=== PATIENT | male | born 1975 | race African-American/Black ===

== ENCOUNTER 2019-02-14 08:13 | Inpatient (IN) | payer OTHER ==
[2019-02-14] MEDS ORDERED: SODIUM CHLORIDE 1,000 ML IV STA ×3 (08:48→12:54)
[2019-02-14] MEDS ORDERED: ONDANSETRON 4 MG/2 ML VIAL IVPUSH ONE (08:48)
[2019-02-14] MEDS ORDERED: PANTOPRAZOLE SODIUM 40 MG in SODIUM CHLORIDE 100 ML IVPB ONE (08:48)
[2019-02-14] MEDS ORDERED: ONDANSETRON 4 MG/2 ML VIAL ONE (09:37)
[2019-02-14] MEDS ORDERED: PANTOPRAZOLE SODIUM 40 MG/100 ML BAG IVPB ONE (09:37)
--- NOTE | 2019-02-14 10:03 | PDOC ---
History of Present Illness - General Chief Complaint: Nausea/Vomiting Stated Complaint: SWEATING/ THROWING UP Time Seen by Provider: 02/14/19 09:23 History Source: Patient Exam Limitations: No Limitations - History of Present Illness Initial Comments: 02/14/19 09:58 43-year-old male with history of alcohol abuse presents to ED after drinking heavily over the weekend. Patient states has been in recovery since November and drink approximately a bottle of 100 proof Smirnoff vodka Thursday causing him to now vomiting feel weak along with dizziness. Patient called his mother this morning and brought him here for evaluation. Patient denies chest pain, shortness of breath, head injury, headache, bloody emesis, bloody stool, or change in urine pattern. Patient states has been unable to tolerate anything by mouth secondary to continual nausea vomiting Timing/Duration: getting worse Severity: moderate Associated Symptoms: reports: diaphoresis, loss of appetite, nausea/vomiting, weakness Past History - Travel Traveled outside of the country in the last 30 days: No Close contact w/someone who was outside of country & ill: No - Past Medical History Allergies/Adverse Reactions: Allergies Allergy/AdvReac Type Severity Reaction Status Date / Time No Known Allergies Allergy Verified 02/14/19 08:18 Home Medications: Ambulatory Orders Clonidine HCl [Catapres] 0.5 mg PO DAILY 02/14/19 Colchicine 0.6 mg PO BID PRN 10 Days #20 capsule 02/19/19 Omeprazole 40 mg PO DAILY #30 tablet. 02/19/19 COPD: No HTN: Yes - Suicide/Smoking/Psychosocial Hx Smoking History: Never smoked Information on smoking cessation initiated: No Hx Alcohol Use: Yes Drug/Substance Use Hx: No Substance Use Type: Alcohol Hx Substance Use Treatment: No Patient Lives Alone: Yes Lives with/in: lives alone Review of Systems - Review of Systems Able to Perform ROS?: No Constitutional: Yes: Loss of Appetite, Weakness HEENTM: No: Symptoms Reported Respiratory: No: Symptoms reported Cardiac (ROS): No: Symptoms Reported ABD/GI: Yes: Nausea, Poor Appetite, Poor Fluid Intake, Vomiting : No: Symptoms Reported Musculoskeletal: No: Symptoms Reported Integumentary: Yes: Sweating Neurological: Yes: Weakness Endocrine: No: Symptoms Reported Hematologic/Lymphatic: No: Symptoms Reported *Physical Exam - Vital Signs Last Vital Signs Temp Pulse Resp BP Pulse Ox 98.3 F 81 18 100/80 98 02/14/19 08:16 02/14/19 08:16 02/14/19 08:16 02/14/19 08:16 02/14/19 08:16 - Physical Exam General Appearance: Yes: Nourished, Appropriately Dressed, Alcohol on Breath. No: Apparent Distress, Intoxicated HEENT: positive: EOMI, KWASI, TMs Normal, Pharynx Normal (dry). negative: Pale Conjunctivae Neck: positive: Supple Respiratory/Chest: positive: Lungs Clear, Normal Breath Sounds. negative: Respiratory Distress, Accessory Muscle Use Cardiovascular: positive: Regular Rhythm, Regular Rate. negative: Murmur Gastrointestinal/Abdominal: positive: Soft. negative: Tenderness Integumentary: positive: Diaphoresis Neurologic: positive: Normal Mood/Affect, Motor Strength 5/5, Other (tremulous) Heart Score/ECG Review - History History: Slightly suspicious - Age Age: </= 45 - Risk Factors Risk Factors Heart Score: Yes Hx Hypertension - Troponin Troponin: </= normal limit - ECG Intrepretation Rhythm: Regular Rhythm (ssinus tachy at 127, qtc 412) ED Treatment Course - LABORATORY CBC & Chemistry Diagram: 02/19/19 06:00 02/19/19 06:00 Medical Decision Making - Medical Decision Making 02/14/19 10:00 Chief complaint: Nausea vomiting diaphoresis poor appetite and weakness since yesterday. Patient drank approximately 750 ml of 100 proof Smirnoff vodka Thursday into Thursday. By Thursday evening patient began to vomit with worsening symptoms. Patient states that has been in recovery from alcohol since November currently involved in a meetings but due to "bad news" at work patient began to drink. Exam: Patient found to be diaphoretic dry oropharynx and mild fine tremors to bilateral hands while at rest Plan: Fluids, urine, antiemetics, labs, and 0.5 mg of Ativan 02/14/19 12:54 Laboratory Tests 02/14/19 02/14/19 11:30 11:30 LD Total 194 Creatine Kinase 1048 H Creatine Kinase Index 1.0 CK-MB (CK-2) 11.3 H Troponin I < 0.02 Total Amylase 79 Acetone, Qual Positive moderate 2+ Laboratory Tests 02/14/19 02/14/19 09:55 09:55 Hgb 16.5 Hct 49.5 H D Absolute Neuts (auto) 10.2 H Neutrophils % 88.9 H D Lymphocytes % 3.9 L D Sodium 129 L Potassium 5.2 H Chloride 92 L Carbon Dioxide 11 L Anion Gap 26 H BUN 46 H Creatinine 2.6 H Random Glucose 254 H Magnesium 1.6 L Total Bilirubin 3.0 H AST 55 H Total Protein 9.8 H Albumin 4.6 Lipase 671 H Pt ordered for 3 liters of IVF, mag replacement, amylase, gb u/s ( poss abd ct) , ekg, color television console monitor, an additional 1 mg of ativan ( secondary to continual tremors and elevated HR). Pt concerning for rhabdo, ARF, and DKA. Fingerstick to be done after 3 rd liter of ivf 02/14/19 12:57 Laboratory Tests 02/14/19 13:20 VBG pH 7.42 H POC VBG pCO2 20.6 L POC VBG pO2 109 H VBG HCO3 13.0 L VBG O2 Sat (Daniel) 98.0 H VBG Base Excess -9.4 L GB u/s shows no acute findings pt will receive banana bag then repeat chemistry. If electrolytes corrected will continue admission to telemetry. If continual deficit, will consult ICU. Case discussed w/ Ashtyn and will consult shortly. Consult to Fay payan 02/14/19 16:22 Laboratory Tests 02/14/19 02/14/19 02/14/19 09:55 09:55 11:30 WBC 11.5 H Hgb 16.5 Hct 49.5 H D Absolute Neuts (auto) 10.2 H Neutrophils % 88.9 H D Lymphocytes % 3.9 L D VBG pH POC VBG pCO2 POC VBG pO2 Sodium 129 L Potassium 5.2 H Chloride 92 L Carbon Dioxide Anion Gap BUN Creatinine Random Glucose Calcium Total Bilirubin AST Alkaline Phosphatase LD Total 194 Creatine Kinase Creatine Kinase Index CK-MB (CK-2) Troponin I Total Amylase 79 Urine Protein Urine Ketones Urine Blood Urine Urobilinogen Ur Leukocyte Esterase Urine WBC (Auto) Alcohol, Quantitative 02/14/19 02/14/19 02/14/19 13:20 14:45 15:00 WBC Hgb Hct Absolute Neuts (auto) Neutrophils % Lymphocytes % VBG pH 7.42 H POC VBG pCO2 20.6 L POC VBG pO2 109 H Sodium 134 L Potassium Chloride Carbon Dioxide 17 L Anion Gap 14 BUN 38 H Creatinine 1.5 H Random Glucose 128 H Calcium 7.8 L Total Bilirubin 2.2 H AST 42 H Alkaline Phosphatase 43 L LD Total Creatine Kinase 913 H Creatine Kinase Index 1.1 CK-MB (CK-2) 10.3 H Troponin I < 0.02 Total Amylase Urine Protein 1+ H Urine Ketones 4+ H Urine Blood 1+ H Urine Urobilinogen 0.2 Ur Leukocyte Esterase Negative Urine WBC (Auto) 6 Alcohol, Quantitative < 3.0 Electrolytes improving. Selected Entries 02/14/19 15:53 Pulse Rate [ 102 H Radial] Blood Pressure 135/89 [Right Arm] *DC/Admit/Observation/Transfer Diagnosis at time of Disposition: Rhabdomyolysis, ARF (acute renal failure), Alcoholic ketoacidosis, Elevated lipase - Discharge Dispostion Disposition: AGAINST MEDICAL ADVICE Condition at time of disposition: Poor Decision to Admit order: Yes - Referrals - Patient Instructions - Post Discharge Activity
[2019-02-14] MEDS ORDERED: LORazepam 2 MG/ML SDV VIAL ONE ×3 (10:08→18:30)
[2019-02-14 10:11] LABS: BASO % 0.2 % (0-2.0); HEMATOCRIT 49.5 % (35.4-49); HEMOGLOBIN 16.5 GM/dL (11.7-16.9); LYMPH % 3.9 % (8-40); MCH 29.3 pg (25.7-33.7); MCHC 33.3 g/dl (32.0-35.9); MEAN CELL VOLUME 87.9 fl (80-96); MEAN PLT VOLUME 8.8 fl (7.5-11.1); NEUT % 88.9 % (42.8-82.8); PLATELET COUNT 205 K/MM3 (134-434); RBC 5.63 M/mm3 (4.00-5.60); RDW 14.3 % (11.9-15.9); WHITE BLOOD COUNT 11.5 K/mm3 (4.0-10.0)
[2019-02-14 10:48] LABS: ALBUMIN 4.6 g/dl (3.4-5.0); ALK PHOS 55 U/L (45-117); ANION GAP 26 MMOL/L (8-16); BLOOD UREA NITROGEN 46 mg/dL (7-18); CHLORIDE 92 mmol/L (98-107); CO2 11 mmol/L (21-32); CREATININE 2.6 mg/dL (0.55-1.3); GLUCOSE,RANDOM 254 mg/dL (74-106); LIPASE 671 U/L (73-393); MAGNESIUM 1.6 mg/dL (1.8-2.4); POTASSIUM 5.2 mmol/L (3.5-5.1); SGOT/AST 55 U/L (15-37); SGPT/ALT 50 U/L (13-61); SODIUM 129 mmol/L (136-145); TOT PROT 9.8 g/dl (6.4-8.2)
[2019-02-14] MEDS ORDERED: MAGNESIUM SULF 50% (8.12 MEQ/2 ML-1 GM VIAL) IVPB ONE (11:05)
[2019-02-14] MEDS ORDERED: MAGNESIUM 2GM/50ML STERILE WATER IVPB IVPB ONE (12:15)
--- NOTE | 2019-02-14 12:18 | EKG ---
Test Reason : Blood Pressure : / mmHG Vent. Rate : 127 BPM Atrial Rate : 127 BPM P-R Int : 118 ms QRS Dur : 092 ms QT Int : 284 ms P-R-T Axes : 054 058 051 degrees QTc Int : 412 ms SINUS TACHYCARDIA T WAVE ABNORMALITY, CONSIDER INFERIOR ISCHEMIA ABNORMAL ECG WHEN COMPARED WITH ECG OF 06-OCT-2017 12:42, T WAVE VARIATION Confirmed by EILEEN ALONSO MD ([id number]) on 02/14/2019 12:18:15 PM Referred By: Confirmed By:EILEEN ALONSO MD
[2019-02-14 12:24] LABS: AMYLASE 79 U/L (25-115); LDH 194 U/L (87-246)
[2019-02-14 13:34] LABS: VENOUS PC02 20.6 mmHg (41-51); VENOUS PH 7.42 (7.31-7.41)
[2019-02-14] MEDS ORDERED: FOLIC ACID INJECTION - 1 MG, THIAMINE HCL 100 MG, MULTIVIT INJECTION ADULT 10 ML in SOD... IVPB ONE (14:32)
[2019-02-14] MEDS ORDERED: METOPROLOL TARTRATE 5 MG/5 ML VIAL IVPUSH ONE (15:02)
[2019-02-14] MEDS ORDERED: METOPROLOL TARTRATE 5 MG/5 ML VIAL ONE (15:15)
[2019-02-14 15:32] LABS: ALBUMIN 3.7 g/dl (3.4-5.0); ALK PHOS 43 U/L (45-117); ANION GAP 14 MMOL/L (8-16); BILIRUBIN,TOTAL 2.2 mg/dL (0.2-1); BLOOD UREA NITROGEN 38 mg/dL (7-18); CALCIUM 7.8 mg/dL (8.5-10.1); CHLORIDE 103 mmol/L (98-107); CO2 17 mmol/L (21-32); CREATININE 1.5 mg/dL (0.55-1.3); GLUCOSE,RANDOM 128 mg/dL (74-106); MAGNESIUM 2.2 mg/dL (1.8-2.4); POTASSIUM 4.3 mmol/L (3.5-5.1); SGOT/AST 42 U/L (15-37); SGPT/ALT 39 U/L (13-61); SODIUM 134 mmol/L (136-145); TOT PROT 7.9 g/dl (6.4-8.2)
[2019-02-14 15:33] LABS: COCAINE, UR NEGATIVE ng/ml (CUTOFF=300); EPI CELLS 2.1 /HPF (0-5/HPF); METHADONE, UR NEGATIVE ng/ml (CUTOFF=300); OPIATES, URI NEGATIVE ng/ml (CUTOFF=300); PH,URINE 5.5 (5.0-8.0); PHENCYCLIDINE,URINE NEGATIVE ng/ml (CUTOFF=25); URINE AMPHETAMINES NEGATIVE ng/ml (CUTOFF=500); URINE APPEARANCE CLEAR; URINE BACTERIA 5.6 /hpf (NEGATIVE); URINE BARBITURATES NEGATIVE ng/ml (CUTOFF=200); URINE BENZODIAZEPINES NEGATIVE ng/ml (CUTOFF=200); URINE BILIRUBIN NEGATIVE (NEGATIVE); URINE CASTS 19 /lpf (0-8); URINE COLOR YELLOW; URINE GLUCOSE (UA) NEGATIVE (NEGATIVE); URINE KETONE 4+ (NEGATIVE); URINE LEUK ESTERASE NEGATIVE (NEGATIVE); URINE NITRITE NEGATIVE (NEGATIVE); URINE PROTEIN 1+ (NEGATIVE); URINE RBC 2 /hpf (0-4); URINE UROBILINOGEN 0.2 mg/dL (0.2-1.0); URINE WBC 6 /hpf (0-5)
--- NOTE | 2019-02-14 17:11 | CONSULT ---
Consult Consult Specialty:: Nephrology Reason for Consultation:: YIN - History of Present Illness Chief Complaint: weekness and malaise History of Present Illness: Pt is a 43 year old male with pmhx of etoh abuse who presents to the ER with malaise. He quit drinking eoth in November however had a relapse over the weekend and has been drinking heavily. He did have a few episodes of vomiting. He was found to be in renal failure and I was called to evaluate him. He denies history of CKD. He denies hematuria or dysuria. He uses nsaids occasionaly. He is awake and alert. He did respond to fluids. - History Source History Provided By: Patient, Medical Record - Past Medical History Cardio/Vascular: Yes: HTN - Alcohol/Substance Use Hx Alcohol Use: Yes History of Substance Use: reports: None - Smoking History Smoking history: Never smoked - Social History ADL: Independent History of Recent Travel: No Home Medications - Allergies Allergies/Adverse Reactions: Allergies Allergy/AdvReac Type Severity Reaction Status Date / Time No Known Allergies Allergy Verified 02/14/19 08:18 - Home Medications Home Medications: Ambulatory Orders Clonidine HCl [Catapres] 0.5 mg PO DAILY 02/14/19 Family Disease History - Family Disease History Family History: Denies Review of Systems - Review of Systems Constitutional: reports: Malaise. denies: Chills, Fever Eyes: reports: No Symptoms HENT: reports: No Symptoms Neck: reports: No Symptoms Cardiovascular: reports: No Symptoms Respiratory: reports: No Symptoms Gastrointestinal: reports: No Symptoms Genitourinary: reports: No Symptoms Musculoskeletal: reports: No Symptoms Integumentary: reports: No Symptoms Neurological: reports: No Symptoms Endocrine: reports: No Symptoms Hematology/Lymphatic: reports: No Symptoms Psychiatric: reports: No Symptoms Physical Exam Vital Signs: Vital Signs Temperature 98.3 F 02/14/19 08:16 Pulse Rate 102 H 02/14/19 15:53 Respiratory Rate 19 02/14/19 15:53 Blood Pressure 135/89 02/14/19 15:53 O2 Sat by Pulse Oximetry (%) 98 02/14/19 08:16 Constitutional: Yes: Anxious Eyes: Yes: Conjunctiva Clear HENT: Yes: Atraumatic Cardiovascular: Yes: S1, S2 Respiratory: Yes: CTA Bilaterally Gastrointestinal: Yes: Normal Bowel Sounds, Soft Renal/: Yes: WNL Musculoskeletal: Yes: WNL Edema: No Neurological: Yes: Oriented Psychiatric: Yes: Oriented Labs: CBC, BMP 02/14/19 09:55 02/14/19 14:45 Laboratory Tests 02/14/19 02/14/19 02/14/19 09:55 09:55 11:30 WBC 11.5 H Hgb 16.5 Plt Count 205 Sodium 129 L Potassium 5.2 H Carbon Dioxide 11 L Creatinine 2.6 H Random Glucose 254 H Calcium 9.0 Creatine Kinase 1048 H 02/14/19 14:45 WBC Hgb Plt Count Sodium 134 L Potassium 4.3 Carbon Dioxide 17 L Creatinine 1.5 H Random Glucose 128 H Calcium Creatine Kinase 913 H Imaging - Results Ultrasound: Report Reviewed Problem List - Problems (1) ARF (acute renal failure) Code(s): N17.9 - ACUTE KIDNEY FAILURE, UNSPECIFIED (2) Rhabdomyolysis Code(s): M62.82 - RHABDOMYOLYSIS (3) ETOH abuse Code(s): F10.10 - ALCOHOL ABUSE, UNCOMPLICATED Assessment/Plan Selected Entries 02/14/19 15:53 Blood Pressure 135/89 [Right Arm] Impression 1. YIN 2. hyperkalemia 3. metabolic acidosis 4. HTN 5. etoh abuse - active 6. rhabdo 7. 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
[2019-02-14] MEDS ORDERED: SODIUM CHLORIDE 0.45% 1,000 ML IV SCH (17:15)
[2019-02-14] MEDS ORDERED: SODIUM CHLORIDE 1,000 ML IV SCH (19:00)
--- NOTE | 2019-02-14 19:59 | HP ---
Admitting History and Physical - Admission History of Present Illness: 43-year-old male with history of alcohol abuse presents to ED after drinking heavily over the weekend. Patient states has been in recovery since November and drink approximately a bottle of 100 proof Smirnoff vodka Thursday(750ml). He states began to feel "sick later in the afternoon on Thursday -began vomiting, unable to tolerate PO intake - liquids or solids, this continued through the night becoming diaphoretic and feeling like he was going to pass out. Patient called his mother this morning and brought him here for evaluation. Patient denies chest pain, shortness of breath, head injury, headache, bloody emesis, bloody stool, or change in urine pattern. 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 History of Recent Travel: No Home Medications - Allergies Allergies/Adverse Reactions: Allergies Allergy/AdvReac Type Severity Reaction Status Date / Time No Known Allergies Allergy Verified 02/14/19 08:18 - Home Medications Home Medications: Ambulatory Orders Clonidine HCl [Catapres] 0.5 mg PO DAILY 02/14/19 Review of Systems Findings/Remarks: patient in usual state of health until Thursday when he began drinking - Review of Systems Constitutional: reports: No Symptoms Eyes: reports: No Symptoms HENT: reports: No Symptoms Neck: reports: No Symptoms Cardiovascular: reports: No Symptoms Respiratory: reports: No Symptoms Gastrointestinal: reports: No Symptoms Genitourinary: reports: No Symptoms Breasts: reports: No Symptoms Reported Musculoskeletal: reports: No Symptoms Integumentary: reports: No Symptoms Neurological: reports: No Symptoms Endocrine: reports: No Symptoms Hematology/Lymphatic: reports: No Symptoms Psychiatric: reports: Anxiety Physical Examination Vital Signs: Vital Signs Temperature 98.3 F 02/14/19 08:16 Pulse Rate 102 H 02/14/19 18:38 Respiratory Rate 22 H 02/14/19 18:38 Blood Pressure 146/95 02/14/19 18:38 O2 Sat by Pulse Oximetry (%) 98 02/14/19 08:16 Constitutional: Yes: Well Nourished, Moderate Distress, Obese Eyes: Yes: EOM Intact, PERRL, Sclera Icterus HENT: Yes: Atraumatic, Normocephalic Neck: Yes: Supple, Trachea Midline Cardiovascular: Yes: Regular Rate and Rhythm, Tachycardia Respiratory: Yes: Regular, CTA Bilaterally. No: Accessory Muscle Use Gastrointestinal: Yes: Normal Bowel Sounds, Soft, Abdomen, Obese ...Rectal Exam: Yes: Deferred Renal/: Yes: WNL Breast(s): Yes: WNL Musculoskeletal: Yes: WNL Extremities: Yes: WNL Edema: No Peripheral Pulses WNL: Yes Integumentary: Yes: WNL Neurological: Yes: WNL, Alert, Oriented ...Motor Strength: WNL Psychiatric: Yes: WNL Labs: CBC, BMP 02/14/19 09:55 02/14/19 14:45 Problem List - Problems (1) Rhabdomyolysis Code(s): M62.82 - RHABDOMYOLYSIS (2) ARF (acute renal failure) Code(s): N17.9 - ACUTE KIDNEY FAILURE, UNSPECIFIED (3) Alcoholic ketoacidosis Code(s): E87.2 - ACIDOSIS (4) Elevated lipase Code(s): R74.8 - ABNORMAL LEVELS OF OTHER SERUM ENZYMES (5) ETOH abuse Code(s): F10.10 - ALCOHOL ABUSE, UNCOMPLICATED (6) HTN (hypertension) Code(s): I10 - ESSENTIAL (PRIMARY) HYPERTENSION
[2019-02-14] MEDS: LABETALOL HCL 100 MG TABLET (FP) PO SCH (22:01)
[2019-02-14] MEDS: LORazepam 1 MG TABLET PO SCH (22:01)
[2019-02-14] MEDS: PANTOPRAZOLE 40 MG TABLET (FP) PO SCH (22:02)
[2019-02-14 22:46] LABS: EPI CELLS 0.6 /HPF (0-5/HPF); PH,URINE 5.5 (5.0-8.0); URINE APPEARANCE CLEAR; URINE BACTERIA 1.4 /hpf (NEGATIVE); URINE BILIRUBIN NEGATIVE (NEGATIVE); URINE CASTS 3 /lpf (0-8); URINE COLOR YELLOW; URINE GLUCOSE (UA) NEGATIVE (NEGATIVE); URINE KETONE 3+ (NEGATIVE); URINE LEUK ESTERASE NEGATIVE (NEGATIVE); URINE NITRITE NEGATIVE (NEGATIVE); URINE PROTEIN NEGATIVE (NEGATIVE); URINE RBC 1 /hpf (0-4); URINE UROBILINOGEN 0.2 mg/dL (0.2-1.0); URINE WBC 2 /hpf (0-5)
[2019-02-15] MEDS ORDERED: cloNIDine HCL 0.1 MG TABLET PO ONE ×2 (02:45→10:15)
[2019-02-15] MEDS: LABETALOL HCL 100 MG TABLET (FP) PO SCH ×3 (05:43→21:23)
[2019-02-15] MEDS: LORazepam 1 MG TABLET PO SCH ×3 (05:43→21:22)
[2019-02-15 06:18] LABS: BASO % 0.4 % (0-2.0); EOS % 0.2 % (0-4.5); HEMOGLOBIN 11.9 GM/dL (11.7-16.9); LYMPH % 14.9 % (8-40); MCH 29.7 pg (25.7-33.7); MEAN CELL VOLUME 84.9 fl (80-96); MEAN PLT VOLUME 8.4 fl (7.5-11.1); MONO % 9.3 % (3.8-10.2); NEUT % 75.2 % (42.8-82.8); PLATELET COUNT 124 K/MM3 (134-434); RBC 4.01 M/mm3 (4.00-5.60); RDW 14.7 % (11.9-15.9); WHITE BLOOD COUNT 6.8 K/mm3 (4.0-10.0)
[2019-02-15 06:28] VITALS: BMI 34.7
[2019-02-15 06:44] LABS: ALBUMIN 3.2 g/dl (3.4-5.0); ALK PHOS 34 U/L (45-117); ANION GAP 10 MMOL/L (8-16); BILIRUBIN,TOTAL 1.6 mg/dL (0.2-1); BLOOD UREA NITROGEN 16 mg/dL (7-18); CALCIUM 7.3 mg/dL (8.5-10.1); CHLORIDE 107 mmol/L (98-107); CHOLESTEROL 201 mg/dL (50-200); CO2 22 mmol/L (21-32); GLUCOSE,RANDOM 99 mg/dL (74-106); HDL CHOLESTEROL 45 mg/dL (40-60); MAGNESIUM 2.1 mg/dL (1.8-2.4); POTASSIUM 3.6 mmol/L (3.5-5.1); SGOT/AST 36 U/L (15-37); SGPT/ALT 32 U/L (13-61); SODIUM 139 mmol/L (136-145); TOT PROT 6.6 g/dl (6.4-8.2); TRIGLYCERIDES 471 mg/dL (0-150)
[2019-02-15] MEDS ORDERED: PNEUMOC 13-VAL CONJ-DIP CRM/PF 0.5 ML DISP.SYRIN IM ONE (08:00)
[2019-02-15] MEDS ORDERED: PNEUMOCOCCAL 23 VACCINE 0.5 ML VIAL IM ONE (08:15)
[2019-02-15] MEDS ORDERED: FLU VACCINE QUAD 60 MCG/0.5 ML (MDV 18-19) IM ONE (09:00)
[2019-02-15] MEDS: PANTOPRAZOLE 40 MG TABLET (FP) PO SCH ×2 (09:07→21:23)
--- NOTE | 2019-02-15 11:35 | PN ---
Progress Note (short form) - Note Progress Note: in bed voiding freely feeling better no tremors HR 80 NAD Vital Signs Period Temp Pulse Resp BP Sys/Duncan Pulse Ox Last 24 Hr 97.8 F-99.0 F 85-117 18-22 132-156/88-117 98-98 neck supple heart S1/S2 lungs clear bilart abd obese / soft non tender BS + ext no concepcion a CBC, BMP 02/15/19 05:30 02/15/19 05:30 Laboratory Last Values WBC 6.8 K/mm3 (4.0-10.0) 02/15/19 05:30 RBC 4.01 M/mm3 (4.00-5.60) 02/15/19 05:30 Hgb 11.9 GM/dL (11.7-16.9) 02/15/19 05:30 Hct 34.0 % (35.4-49) L D 02/15/19 05:30 MCV 84.9 fl (80-96) 02/15/19 05:30 MCH 29.7 pg (25.7-33.7) 02/15/19 05:30 MCHC 35.0 g/dl (32.0-35.9) 02/15/19 05:30 RDW 14.7 % (11.9-15.9) 02/15/19 05:30 Plt Count 124 K/MM3 (134-434) L D 02/15/19 05:30 MPV 8.4 fl (7.5-11.1) 02/15/19 05:30 Absolute Neuts (auto) 5.1 K/mm3 (1.5-8.0) 02/15/19 05:30 Neutrophils % 75.2 % (42.8-82.8) 02/15/19 05:30 Lymphocytes % 14.9 % (8-40) D 02/15/19 05:30 Monocytes % 9.3 % (3.8-10.2) 02/15/19 05:30 Eosinophils % 0.2 % (0-4.5) D 02/15/19 05:30 Basophils % 0.4 % (0-2.0) 02/15/19 05:30 Nucleated RBC % 0 % (0-0) 02/15/19 05:30 VBG pH 7.42 (7.31-7.41) H 02/14/19 13:20 POC VBG pCO2 20.6 mmHg (41-51) L 02/14/19 13:20 POC VBG pO2 109 mmHg (30-40) H 02/14/19 13:20 VBG HCO3 13.0 mmol/L (23-29) L 02/14/19 13:20 VBG O2 Sat (Daniel) 98.0 % (70-80) H 02/14/19 13:20 VBG Base Excess -9.4 meq/l (-2-2) L 02/14/19 13:20 Sodium 139 mmol/L (136-145) 02/15/19 05:30 Potassium 3.6 mmol/L (3.5-5.1) 02/15/19 05:30 Chloride 107 mmol/L (98-107) 02/15/19 05:30 Carbon Dioxide 22 mmol/L (21-32) 02/15/19 05:30 Anion Gap 10 MMOL/L (8-16) 02/15/19 05:30 BUN 16 mg/dL (7-18) 02/15/19 05:30 Creatinine 1.0 mg/dL (0.55-1.3) 02/15/19 05:30 Creat Clearance w eGFR 81.17 (>60) 02/15/19 05:30 POC Glucometer 132 UNITS (80-120) 02/14/19 22:16 Random Glucose 99 mg/dL (74-106) 02/15/19 05:30 Calcium 7.3 mg/dL (8.5-10.1) L 02/15/19 05:30 Magnesium 2.1 mg/dL (1.8-2.4) 02/15/19 05:30 Total Bilirubin 1.6 mg/dL (0.2-1) H 02/15/19 05:30 AST 36 U/L (15-37) 02/15/19 05:30 ALT 32 U/L (13-61) 02/15/19 05:30 Alkaline Phosphatase 34 U/L (45-117) L 02/15/19 05:30 LD Total 194 U/L (87-246) 02/14/19 11:30 Creatine Kinase 659 U/L (26-308) H 02/15/19 05:30 Creatine Kinase Index 0.7 % (0.0-5.0) 02/15/19 05:30 CK-MB (CK-2) 5.0 ng/mL (0.5-3.6) H 02/15/19 05:30 Troponin I < 0.02 ng/ml (0.00-0.05) 02/14/19 14:45 Total Protein 6.6 g/dl (6.4-8.2) 02/15/19 05:30 Albumin 3.2 g/dl (3.4-5.0) L 02/15/19 05:30 Triglycerides 471 mg/dL (0-150) H 02/15/19 05:30 Cholesterol 201 mg/dL (50-200) H 02/15/19 05:30 Total LDL Cholesterol 93 mg/dL (5-100) 02/15/19 05:30 HDL Cholesterol 45 mg/dL (40-60) 02/15/19 05:30 Total Amylase 50 U/L (25-115) 02/15/19 05:30 Lipase 318 U/L (73-393) 02/15/19 05:30 Urine Color Yellow 02/14/19 22:15 Urine Appearance Clear 02/14/19 22:15 Urine pH 5.5 (5.0-8.0) 02/14/19 22:15 Ur Specific [place] 1.018 (1.010-1.035) 02/14/19 22:15 Urine Protein Negative (NEGATIVE) 02/14/19 22:15 Urine Glucose (UA) Negative (NEGATIVE) 02/14/19 22:15 Urine Ketones 3+ (NEGATIVE) H 02/14/19 22:15 Urine Blood Trace (NEGATIVE) 02/14/19 22:15 Urine Nitrite Negative (NEGATIVE) 02/14/19 22:15 Urine Bilirubin Negative (NEGATIVE) 02/14/19 22:15 Urine Urobilinogen 0.2 mg/dL (0.2-1.0) 02/14/19 22:15 Ur Leukocyte Esterase Negative (NEGATIVE) 02/14/19 22:15 Urine WBC (Auto) 2 /hpf (0-5) 02/14/19 22:15 Urine RBC (Auto) 1 /hpf (0-4) 02/14/19 22:15 Urine Casts (Auto) 3 /lpf (0-8) 04/15/19 22:15 U Epithel Cells (Auto) 0.6 /HPF (0-5/HPF) 02/14/19 22:15 Urine Bacteria (Auto) 1.4 /hpf (NEGATIVE) 02/14/19 22:15 Ur Random Sodium 79 MMOL/L (40-220) 02/14/19 22:50 Ur Random Potassium 49.3 MMOL/L (25-125) 02/14/19 22:50 Ur Random Chloride 151 MMOL/L (110-250) 02/14/19 22:50 Urine Creatinine 76.9 mg/dL (20-320) 02/14/19 22:55 Opiates Screen Negative ng/ml (OPPJHA=116) 02/14/19 15:00 Methadone Screen Negative ng/ml (LCVFRK=791) 02/14/19 15:00 Barbiturate Screen Negative ng/ml (AIMFLO=296) 02/14/19 15:00 Phencyclidine Screen Negative ng/ml (CUTOFF=25) 02/14/19 15:00 Ur Amphetamines Screen Negative ng/ml (NOWPKT=644) 02/14/19 15:00 MDMA (Ecstasy) Screen Negative ng/ml (RROWXE=353) 02/14/19 15:00 Benzodiazepines Screen Negative ng/ml (SFJMCL=688) 02/14/19 15:00 Cocaine Screen Negative ng/ml (MACJGN=777) 02/14/19 15:00 U Marijuana (THC) Screen Negative ng/ml (CUTOFF=50) 02/14/19 15:00 Alcohol, Quantitative < 3.0 mg/dL (0.0-5.0) 02/14/19 14:45 Acetone, Qual Positive moderate 2+ (NEGATIVE) 02/14/19 11:30 Active Medications Sodium Chloride (Normal Saline -) 1,000 mls @ 150 mls/hr IV [facility] Last Admin: 02/14/19 22:02 Dose: 150 mls/hr Labetalol HCl (Normodyne -) 100 mg PO TID [facility] Last Admin: 02/15/19 05:43 Dose: 100 mg Lorazepam (Ativan -) 1 mg PO TID [facility] Last Admin: 02/15/19 05:43 Dose: 1 mg Pantoprazole Sodium (Protonix -) 40 mg PO BID [facility] Last Admin: 02/15/19 09:07 Dose: 40 mg # YIN 2/2 to rhabdo ---Ck this am >600 Cr on admission 2.6 s/p 6 liters of fluid Cr this am 1.0 Continue IV fluids / frend Ck / foloow renal function # ETOH abuse with withdrawl rhabdo due to above gastritis 2/2 to ETOH Gi consult requested Abd u/s ?? signigicant for thickend gall bladder repeat this am -- no finidings clinically await resilts # Gastritis / reflux 2/2 to ETOH add carafate to PPI change diet to full liquids # HTN continue labetolol monitor vitals adjust meds as needed Problem List - Problems (1) Rhabdomyolysis Code(s): M62.82 - RHABDOMYOLYSIS (2) ARF (acute renal failure) Code(s): N17.9 - ACUTE KIDNEY FAILURE, UNSPECIFIED (3) Alcoholic ketoacidosis Code(s): E87.2 - ACIDOSIS (4) Elevated lipase Code(s): R74.8 - ABNORMAL LEVELS OF OTHER SERUM ENZYMES (5) ETOH abuse Code(s): F10.10 - ALCOHOL ABUSE, UNCOMPLICATED (6) HTN (hypertension) Code(s): I10 - ESSENTIAL (PRIMARY) HYPERTENSION
[2019-02-15] MEDS: SUCRALFATE 1 GM/10 ML UNIT DOSE CUPS PO SCH ×3 (13:58→21:23)
--- NOTE | 2019-02-15 14:17 | PN ---
Progress Note, Physician History of Present Illness: Pt seen and examined at bedside. He is awake and alert. He has appetite and is asking for food. - Current Medication List Current Medications: Active Medications Sodium Chloride (Normal Saline -) 1,000 mls @ 150 mls/hr IV [facility] Last Admin: 02/14/19 22:02 Dose: 150 mls/hr Labetalol HCl (Normodyne -) 100 mg PO TID [facility] Last Admin: 02/15/19 13:58 Dose: 100 mg Lorazepam (Ativan -) 1 mg PO TID [facility] Last Admin: 02/15/19 13:58 Dose: 1 mg Pantoprazole Sodium (Protonix -) 40 mg PO BID [facility] Last Admin: 02/15/19 09:07 Dose: 40 mg Sucralfate (Carafate Oral Suspension -) 1 gm PO QID [facility] Last Admin: 02/15/19 13:58 Dose: 1 gm - Objective Vital Signs: Vital Signs Temperature 97.8 F 02/15/19 08:48 Pulse Rate 101 H 02/15/19 08:48 Respiratory Rate 18 02/15/19 08:50 Blood Pressure 138/104 H 02/15/19 08:48 O2 Sat by Pulse Oximetry (%) 98 02/15/19 08:50 Constitutional: Yes: Calm Eyes: Yes: Conjunctiva Clear HENT: Yes: Atraumatic Neck: Yes: Supple Cardiovascular: Yes: S1, S2 Respiratory: Yes: CTA Bilaterally Gastrointestinal: Yes: Normal Bowel Sounds, Soft Genitourinary: Yes: WNL Musculoskeletal: Yes: WNL Edema: No Integumentary: Yes: WNL Neurological: Yes: Oriented Psychiatric: Yes: Oriented Labs: CBC, BMP 02/15/19 05:30 02/15/19 05:30 Problem List - Problems (1) ARF (acute renal failure) Code(s): N17.9 - ACUTE KIDNEY FAILURE, UNSPECIFIED (2) Rhabdomyolysis Code(s): M62.82 - RHABDOMYOLYSIS (3) ETOH abuse Code(s): F10.10 - ALCOHOL ABUSE, UNCOMPLICATED Assessment/Plan Current Medications Generic Name Dose Route Start Last Admin Trade Name Freq PRN Reason Stop Dose Admin Sodium Chloride 1,000 mls @ 150 mls/hr 02/14/19 19:00 02/14/19 22:02 Normal Saline - IV 150 mls/hr [facility] Administration Labetalol HCl 100 mg 02/14/19 22:00 02/15/19 13:58 Normodyne - PO 100 mg TID [facility]ANG Administration Lorazepam 1 mg 02/14/19 22:00 02/15/19 13:58 Ativan - PO 1 mg TID [facility]ANG Administration Pantoprazole Sodium 40 mg 02/14/19 22:00 02/15/19 09:07 Protonix - PO 40 mg BID [facility] Administration Sucralfate 1 gm 02/15/19 14:00 02/15/19 13:58 Carafate Oral Suspension - PO 1 gm QID [facility]ANG Administration Impression 1. YIN 2. hyperkalemia 3. metabolic acidosis 4. HTN 5. etoh abuse - active 6. rhabdo 7. hyponatremia Plan - renal function is improving - cpk is improving - can decrease rate of fluids - repeat ua - yin likely pre-renal - discussed with medical team Dr Aponte
[2019-02-15] MEDS: SODIUM CHLORIDE 1,000 ML IV SCH (17:47)
[2019-02-15] MEDS: ACETAMINOPHEN 325 MG TABLET (FP) PO PRN (18:06)
[2019-02-16] MEDS: LORazepam 1 MG TABLET PO SCH ×3 (06:13→21:18)
[2019-02-16] MEDS: LABETALOL HCL 100 MG TABLET (FP) PO SCH ×3 (06:13→21:18)
[2019-02-16 06:35] LABS: BASO % 0.3 % (0-2.0); EOS % 0.1 % (0-4.5); HEMATOCRIT 34.2 % (35.4-49); HEMOGLOBIN 11.8 GM/dL (11.7-16.9); MCH 29.4 pg (25.7-33.7); MCHC 34.5 g/dl (32.0-35.9); MEAN CELL VOLUME 85.4 fl (80-96); MEAN PLT VOLUME 8.6 fl (7.5-11.1); MONO % 9.2 % (3.8-10.2); NEUT % 76.4 % (42.8-82.8); PLATELET COUNT 111 K/MM3 (134-434); RDW 14.2 % (11.9-15.9); WHITE BLOOD COUNT 6.9 K/mm3 (4.0-10.0)
[2019-02-16 06:55] LABS: ALBUMIN 3.2 g/dl (3.4-5.0); ALK PHOS 34 U/L (45-117); ANION GAP 7 MMOL/L (8-16); BILIRUBIN,TOTAL 1.6 mg/dL (0.2-1); BLOOD UREA NITROGEN 6 mg/dL (7-18); CALCIUM 8.2 mg/dL (8.5-10.1); CHLORIDE 103 mmol/L (98-107); CO2 26 mmol/L (21-32); CREATININE 0.7 mg/dL (0.55-1.3); GLUCOSE,RANDOM 100 mg/dL (74-106); POTASSIUM 3.1 mmol/L (3.5-5.1); SGOT/AST 27 U/L (15-37); SGPT/ALT 29 U/L (13-61); SODIUM 136 mmol/L (136-145); TOT PROT 6.6 g/dl (6.4-8.2)
[2019-02-16 07:11] LABS: URIC ACID 7.4 mg/dL (2.6-7.2)
[2019-02-16] MEDS: SUCRALFATE 1 GM/10 ML UNIT DOSE CUPS PO SCH ×4 (09:41→21:18)
[2019-02-16] MEDS: PANTOPRAZOLE 40 MG TABLET (FP) PO SCH ×2 (09:42→21:18)
[2019-02-16] MEDS: ACETAMINOPHEN 325 MG TABLET (FP) PO PRN ×2 (09:42→21:21)
[2019-02-16] MEDS ORDERED: POTASSIUM CHLORIDE TABS 20 MEQ TABLET.ER (FP) PO ONE (10:10)
[2019-02-16] MEDS: COLCHICINE 0.6 MG TABLET (FP) PO ONE ×2 (11:28→12:46)
[2019-02-16] MEDS ORDERED: cloNIDine HCL 0.1 MG TABLET PO ONE (11:30)
[2019-02-16] MEDS ORDERED: POTASSIUM CHLORIDE 20 MEQ PREMIX IVPB 100 ML IVPB ONE ×2 (11:45→17:00)
[2019-02-16] MEDS: methylPREDNISolone NA SUCC 40 MG/1 ML VIAL IVPUSH SCH (11:45)
--- NOTE | 2019-02-16 11:45 | PN ---
Progress Note (short form) - Note Progress Note: in bed voiding freely having "gout attack" everything hurts / "can't get out of bed" swelling to both ankles and right wrist no tremors / no further signs of withdrawal Vital Signs Period Temp Pulse Resp BP Sys/Duncan Pulse Ox Last 24 Hr 97.8 F-98.8 F 77-104 18-20 132-150/62-98 98-100 heart S1/S2 lungs clear bilart abd obese / fullness /guarding RUQ otherwise soft non tender BS + ext tenderness bilat ankles / right wrist no edema Laboratory Last Values WBC 6.9 K/mm3 (4.0-10.0) 02/16/19 05:30 RBC 4.00 M/mm3 (4.00-5.60) 02/16/19 05:30 Hgb 11.8 GM/dL (11.7-16.9) 02/16/19 05:30 Hct 34.2 % (35.4-49) L 02/16/19 05:30 MCV 85.4 fl (80-96) 02/16/19 05:30 MCH 29.4 pg (25.7-33.7) 02/16/19 05:30 MCHC 34.5 g/dl (32.0-35.9) 02/16/19 05:30 RDW 14.2 % (11.9-15.9) 02/16/19 05:30 Plt Count 111 K/MM3 (134-434) L 02/16/19 05:30 MPV 8.6 fl (7.5-11.1) 02/16/19 05:30 Absolute Neuts (auto) 5.3 K/mm3 (1.5-8.0) 02/16/19 05:30 Neutrophils % 76.4 % (42.8-82.8) 02/16/19 05:30 Lymphocytes % 14.0 % (8-40) 02/16/19 05:30 Monocytes % 9.2 % (3.8-10.2) 02/16/19 05:30 Eosinophils % 0.1 % (0-4.5) 02/16/19 05:30 Basophils % 0.3 % (0-2.0) 02/16/19 05:30 Nucleated RBC % 0 % (0-0) 02/16/19 05:30 VBG pH 7.42 (7.31-7.41) H 02/14/19 13:20 POC VBG pCO2 20.6 mmHg (41-51) L 02/14/19 13:20 POC VBG pO2 109 mmHg (30-40) H 02/14/19 13:20 VBG HCO3 13.0 mmol/L (23-29) L 02/14/19 13:20 VBG O2 Sat (Daniel) 98.0 % (70-80) H 02/14/19 13:20 VBG Base Excess -9.4 meq/l (-2-2) L 02/14/19 13:20 Sodium 136 mmol/L (136-145) 02/16/19 05:30 Potassium 3.1 mmol/L (3.5-5.1) L 02/16/19 05:30 Chloride 103 mmol/L (98-107) 02/16/19 05:30 Carbon Dioxide 26 mmol/L (21-32) 02/16/19 05:30 Anion Gap 7 MMOL/L (8-16) L 02/16/19 05:30 BUN 6 mg/dL (7-18) L 02/16/19 05:30 Creatinine 0.7 mg/dL (0.55-1.3) 02/16/19 05:30 Creat Clearance w eGFR 122.51 (>60) 02/16/19 05:30 POC Glucometer 132 UNITS (80-120) 02/14/19 22:16 Random Glucose 100 mg/dL (74-106) 02/16/19 05:30 Uric Acid 7.4 mg/dL (2.6-7.2) H 02/16/19 05:30 Calcium 8.2 mg/dL (8.5-10.1) L 02/16/19 05:30 Magnesium 2.1 mg/dL (1.8-2.4) 02/15/19 05:30 Total Bilirubin 1.6 mg/dL (0.2-1) H 02/16/19 05:30 AST 27 U/L (15-37) 02/16/19 05:30 ALT 29 U/L (13-61) 02/16/19 05:30 Alkaline Phosphatase 34 U/L (45-117) L 02/16/19 05:30 LD Total 194 U/L (87-246) 02/14/19 11:30 Creatine Kinase 338 U/L (26-308) H 02/16/19 05:30 Creatine Kinase Index 0.3 % (0.0-5.0) 02/16/19 05:30 CK-MB (CK-2) 1.1 ng/mL (0.5-3.6) 02/16/19 05:30 Troponin I < 0.02 ng/ml (0.00-0.05) 02/14/19 14:45 Total Protein 6.6 g/dl (6.4-8.2) 02/16/19 05:30 Albumin 3.2 g/dl (3.4-5.0) L 02/16/19 05:30 Triglycerides 471 mg/dL (0-150) H 02/15/19 05:30 Cholesterol 201 mg/dL (50-200) H 02/15/19 05:30 Total LDL Cholesterol 93 mg/dL (5-100) 02/15/19 05:30 HDL Cholesterol 45 mg/dL (40-60) 02/15/19 05:30 Total Amylase 50 U/L (25-115) 02/15/19 05:30 Lipase 1995 U/L (73-393) H 02/16/19 05:30 Urine Color Yellow 02/14/19 22:15 Urine Appearance Clear 02/14/19 22:15 Urine pH 5.5 (5.0-8.0) 02/14/19 22:15 Ur Specific [place] 1.018 (1.010-1.035) 02/14/19 22:15 Urine Protein Negative (NEGATIVE) 02/14/19 22:15 Urine Glucose (UA) Negative (NEGATIVE) 02/14/19 22:15 Urine Ketones 3+ (NEGATIVE) H 02/14/19 22:15 Urine Blood Trace (NEGATIVE) 02/14/19 22:15 Urine Nitrite Negative (NEGATIVE) 02/14/19 22:15 Urine Bilirubin Negative (NEGATIVE) 02/14/19 22:15 Urine Urobilinogen 0.2 mg/dL (0.2-1.0) 02/14/19 22:15 Ur Leukocyte Esterase Negative (NEGATIVE) 02/14/19 22:15 Urine WBC (Auto) 2 /hpf (0-5) 04/15/19 22:15 Urine RBC (Auto) 1 /hpf (0-4) 02/14/19 22:15 Urine Casts (Auto) 3 /lpf (0-8) 02/14/19 22:15 U Epithel Cells (Auto) 0.6 /HPF (0-5/HPF) 02/14/19 22:15 Urine Bacteria (Auto) 1.4 /hpf (NEGATIVE) 02/14/19 22:15 Ur Random Sodium 79 MMOL/L (40-220) 02/14/19 22:50 Ur Random Potassium 49.3 MMOL/L (25-125) 02/14/19 22:50 Ur Random Chloride 151 MMOL/L (110-250) 02/14/19 22:50 Urine Creatinine 76.9 mg/dL (20-320) 02/14/19 22:55 Opiates Screen Negative ng/ml (DYYVAW=240) 02/14/19 15:00 Methadone Screen Negative ng/ml (FBDOEF=687) 02/14/19 15:00 Barbiturate Screen Negative ng/ml (UHGNYS=729) 02/14/19 15:00 Phencyclidine Screen Negative ng/ml (CUTOFF=25) 02/14/19 15:00 Ur Amphetamines Screen Negative ng/ml (TOAEVQ=568) 02/14/19 15:00 MDMA (Ecstasy) Screen Negative ng/ml (ZRALON=127) 02/14/19 15:00 Benzodiazepines Screen Negative ng/ml (TTGGBF=881) 02/14/19 15:00 Cocaine Screen Negative ng/ml (FPFQCV=274) 02/14/19 15:00 U Marijuana (THC) Screen Negative ng/ml (CUTOFF=50) 02/14/19 15:00 Alcohol, Quantitative < 3.0 mg/dL (0.0-5.0) 02/14/19 14:45 Acetone, Qual Positive moderate 2+ (NEGATIVE) 02/14/19 11:30 CK down to 338 lipase inc 1995 Active Medications Sodium Chloride (Normal Saline -) 1,000 mls @ 150 mls/hr IV ASDIR LANG Last Admin: 02/14/19 22:02 Dose: 150 mls/hr Labetalol HCl (Normodyne -) 100 mg PO TID [facility] Last Admin: 02/15/19 05:43 Dose: 100 mg Lorazepam (Ativan -) 1 mg PO TID [facility] Last Admin: 02/15/19 05:43 Dose: 1 mg Pantoprazole Sodium (Protonix -) 40 mg PO BID [facility] Last Admin: 02/15/19 09:07 Dose: 40 mg # acute gout cochicine X1 dose steroids for anti inflammatory continue PPi # YIN 2/2 to rhabdo ---Ck this am >338 Cr on admission 2.6 s/p 6 liters of fluid Cr this am o.7 Continue IV fluids / trend Ck / follow renal function # ETOH abuse with withdrawl rhabdo due to above gastritis 2/2 to ETOH Gi consult requested Abd u/s ?? initally signigicant for thickend gall bladder inc in lipase 1994 today repeat u/s today ?? cholelithiasis # Gastritis / reflux 2/2 to ETOH add carafate to PPI change diet to full liquids # HTN continue labetolol monitor vitals adjust meds as needed Problem List - Problems (1) Acute gout Code(s): M10.9 - GOUT, UNSPECIFIED (2) Elevated lipase Code(s): R74.8 - ABNORMAL LEVELS OF OTHER SERUM ENZYMES (3) Rhabdomyolysis Code(s): M62.82 - RHABDOMYOLYSIS (4) ARF (acute renal failure) Code(s): N17.9 - ACUTE KIDNEY FAILURE, UNSPECIFIED (5) Alcoholic ketoacidosis Code(s): E87.2 - ACIDOSIS (6) ETOH abuse Code(s): F10.10 - ALCOHOL ABUSE, UNCOMPLICATED (7) HTN (hypertension) Code(s): I10 - ESSENTIAL (PRIMARY) HYPERTENSION (8) Acute gout due to renal impairment involving right ankle Code(s): M10.371 - GOUT DUE TO RENAL IMPAIRMENT, RIGHT ANKLE AND FOOT (9) Acute gout due to renal impairment involving right hand Code(s): M10.341 - GOUT DUE TO RENAL IMPAIRMENT, RIGHT HAND (10) Acute gout due to renal impairment involving left ankle Code(s): M10.372 - GOUT DUE TO RENAL IMPAIRMENT, LEFT ANKLE AND FOOT
[2019-02-16] MEDS: KCL 10 MEQ IVPB 10 MEQ/100 ML INFUS.BAG IVPB SCH ×4 (11:46→16:41)
--- NOTE | 2019-02-16 12:57 | PN ---
Progress Note, Physician History of Present Illness: Pt seen and examined at bedside. He denies dysuria or hematuria. - Current Medication List Current Medications: Active Medications Acetaminophen (Tylenol -) 650 mg PO Q6H PRN PRN Reason: PAIN LEVEL 1 - 3 Last Admin: 02/16/19 09:42 Dose: 650 mg Sodium Chloride (Normal Saline -) 1,000 mls @ 100 mls/hr IV ASDIR [facility] Last Admin: 02/15/19 17:47 Dose: 100 mls/hr Potassium Chloride (Potassium Chloride 10 Meq Premix Ivpb -) 10 meq in 100 mls @ 100 mls/hr IVPB Q1H [facility] Stop: 02/16/19 15:44 Last Admin: 02/16/19 11:46 Dose: 100 mls/hr Labetalol HCl (Normodyne -) 100 mg PO TID [facility] Last Admin: 02/16/19 06:13 Dose: 100 mg Lorazepam (Ativan -) 1 mg PO TID [facility] Last Admin: 02/16/19 06:13 Dose: 1 mg Methylprednisolone Sodium Succinate (Solu-Medrol -) 60 mg IVPUSH DAILY [facility] Last Admin: 02/16/19 11:45 Dose: 60 mg Pantoprazole Sodium (Protonix -) 40 mg PO BID [facility] Last Admin: 02/16/19 09:42 Dose: 40 mg Sucralfate (Carafate Oral Suspension -) 1 gm PO QID [facility] Last Admin: 02/16/19 09:41 Dose: 1 gm - Objective Vital Signs: Vital Signs Temperature 97.8 F 02/16/19 09:53 Pulse Rate 101 H 02/16/19 09:53 Respiratory Rate 18 02/16/19 09:53 Blood Pressure 149/62 02/16/19 09:53 O2 Sat by Pulse Oximetry (%) 100 02/16/19 07:30 Constitutional: Yes: Calm Eyes: Yes: Conjunctiva Clear HENT: Yes: Atraumatic Cardiovascular: Yes: S1, S2 Respiratory: Yes: CTA Bilaterally Gastrointestinal: Yes: Soft Genitourinary: Yes: WNL Musculoskeletal: Yes: WNL Edema: No Neurological: Yes: Oriented Psychiatric: Yes: Oriented Labs: CBC, BMP 02/16/19 05:30 02/16/19 05:30 Problem List - Problems (1) ARF (acute renal failure) Code(s): N17.9 - ACUTE KIDNEY FAILURE, UNSPECIFIED (2) Rhabdomyolysis Code(s): M62.82 - RHABDOMYOLYSIS (3) ETOH abuse Code(s): F10.10 - ALCOHOL ABUSE, UNCOMPLICATED Assessment/Plan Current Medications Generic Name Dose Route Start Last Admin Trade Name Freq PRN Reason Stop Dose Admin Acetaminophen 650 mg 02/15/19 18:02 02/16/19 09:42 Tylenol - PO 650 mg Q6H PRN Administration PAIN LEVEL 1 - 3 Sodium Chloride 1,000 mls @ 100 mls/hr 02/15/19 14:19 02/15/19 17:47 Normal Saline - IV 100 mls/hr ASDIR LANG Administration Potassium Chloride 10 meq in 100 mls @ 100 mls/hr 02/16/19 11:45 02/16/19 11: 46 Potassium Chloride 10 Meq Premix Ivpb - IVPB 02/16/19 15:44 100 mls/hr Q1H LANG Administration Labetalol HCl 100 mg 02/14/19 22:00 02/16/19 06:13 Normodyne - PO 100 mg TID LANG Administration Lorazepam 1 mg 02/14/19 22:00 02/16/19 06:13 Ativan - PO 1 mg TID LANG Administration Methylprednisolone Sodium Succinate 60 mg 02/16/19 11:30 02/16/19 11:45 Solu-Medrol - IVPUSH 60 mg DAILY [facility] Administration Pantoprazole Sodium 40 mg 02/14/19 22:00 02/16/19 09:42 Protonix - PO 40 mg BID [facility] Administration Sucralfate 1 gm 02/15/19 14:00 02/16/19 09:41 Carafate Oral Suspension - PO 1 gm QID [facility] Administration Impression 1. YIN 2. hyperkalemia 3. metabolic acidosis 4. HTN 5. etoh abuse - active 6. rhabdo 7. hyponatremia Plan - renal function stable - replace potassium - cpk improving - yin likely pre-renal Dr Aponte
[2019-02-16 14:29] LABS: URINE APPEARANCE CLEAR; URINE BILIRUBIN NEGATIVE (NEGATIVE); URINE COLOR YELLOW; URINE GLUCOSE (UA) NEGATIVE (NEGATIVE); URINE KETONE 2+ (NEGATIVE); URINE LEUK ESTERASE NEGATIVE (NEGATIVE); URINE NITRITE NEGATIVE (NEGATIVE); URINE PROTEIN NEGATIVE (NEGATIVE); URINE UROBILINOGEN 0.2 mg/dL (0.2-1.0)
[2019-02-16] MEDS: SODIUM CHLORIDE 1,000 ML IV SCH (16:42)
[2019-02-17] MEDS: LABETALOL HCL 100 MG TABLET (FP) PO SCH ×3 (06:09→21:39)
[2019-02-17] MEDS: LORazepam 1 MG TABLET PO SCH ×3 (06:09→21:38)
[2019-02-17 08:29] LABS: ALK PHOS 34 U/L (45-117); ANION GAP 7 MMOL/L (8-16); BILIRUBIN,TOTAL 1.1 mg/dL (0.2-1); BLOOD UREA NITROGEN 8 mg/dL (7-18); CALCIUM 8.7 mg/dL (8.5-10.1); CHLORIDE 106 mmol/L (98-107); CO2 27 mmol/L (21-32); CREATININE 0.7 mg/dL (0.55-1.3); GLUCOSE,RANDOM 100 mg/dL (74-106); LIPASE 3396 U/L (73-393); POTASSIUM 3.4 mmol/L (3.5-5.1); SGOT/AST 17 U/L (15-37); SGPT/ALT 25 U/L (13-61); SODIUM 140 mmol/L (136-145); TOT PROT 6.4 g/dl (6.4-8.2)
[2019-02-17] MEDS: SUCRALFATE 1 GM/10 ML UNIT DOSE CUPS PO SCH ×4 (09:36→21:39)
[2019-02-17] MEDS: methylPREDNISolone NA SUCC 40 MG/1 ML VIAL IVPUSH SCH ×2 (09:37→17:06)
[2019-02-17] MEDS: PANTOPRAZOLE 40 MG TABLET (FP) PO SCH ×2 (09:37→21:39)
[2019-02-17] MEDS ORDERED: POTASSIUM CHLORIDE 20 MEQ PREMIX IVPB 100 ML IVPB ONE (09:42)
[2019-02-17] MEDS ORDERED: POTASSIUM CHLORIDE 10 MEQ PREMIX IVPB (POTASSIUM RIDER) IVPB SCH (10:15)
[2019-02-17] MEDS: KCL 10 MEQ IVPB 10 MEQ/100 ML INFUS.BAG IVPB SCH ×2 (10:18→11:41)
[2019-02-17] MEDS: SODIUM CHLORIDE 1,000 ML IV SCH ×2 (10:18→17:14)
--- NOTE | 2019-02-17 12:50 | PN ---
Progress Note (short form) - Note Progress Note: feeling better - some residual joint pain to ankles has been NPO awaiting u/s this am denies abdominal pain no tremors / no further signs of withdrawal Vital Signs Period Temp Pulse Resp BP Sys/Duncan Pulse Ox Last 24 Hr 98 F-99.9 F 71-101 18-20 118-139/64-91 98 heart S1/S2 lungs clear bilart abd obese / fullness /guarding RUQ otherwise soft non tender BS + no abdominal pain elicited ext tenderness bilat ankles / right wrist no edema -- mild swelling CBC, BMP 02/16/19 05:30 02/17/19 07:40 lipase 671 > 318 > 1995 > pnding CK 1048 > 913 > 659 > 338 for u/s repeat today Active Medications Acetaminophen (Tylenol -) 650 mg PO Q6H PRN PRN Reason: PAIN LEVEL 1 - 3 Last Admin: 02/16/19 21:21 Dose: 650 mg Sodium Chloride (Normal Saline -) 1,000 mls @ 150 mls/hr IV ASDIR [facility] Last Admin: 02/17/19 10:18 Dose: 150 mls/hr Labetalol HCl (Normodyne -) 100 mg PO TID [facility] Last Admin: 02/17/19 06:09 Dose: 100 mg Lorazepam (Ativan -) 1 mg PO TID [facility] Last Admin: 02/17/19 06:09 Dose: 1 mg Methylprednisolone Sodium Succinate (Solu-Medrol -) 60 mg IVPUSH Q8H-IV [facility] Pantoprazole Sodium (Protonix -) 40 mg PO BID [facility] Last Admin: 02/17/19 09:37 Dose: 40 mg Sucralfate (Carafate Oral Suspension -) 1 gm PO QID [facility] Last Admin: 02/17/19 09:36 Dose: 1 gm ASSMT / Plan # elevated lipase asymptomatic ?? await u/s -- CT of abd will discuss with GI # acute gout cochicine X1 dose 02/16/19 steroids for anti inflammatory continue PPi / carafate # YIN 2/2 to rhabdo ---Ck clearing Cr on admission 2.6 Continue IV fluids / trend Ck / follow renal function # ETOH abuse with withdrawl rhabdo due to above gastritis 2/2 to ETOH Gi consult requested Abd u/s ?? initally signigicant for thickend gall bladder lipase continues to increase repeat u/s today # Gastritis / reflux 2/2 to ETOH add carafate to PPI change diet to full liquids # HTN continue labetolol monitor vitals adjust meds as needed # hypokalemia correct via IV monitor CMP Problem List - Problems (1) Acute gout Code(s): M10.9 - GOUT, UNSPECIFIED (2) Elevated lipase Code(s): R74.8 - ABNORMAL LEVELS OF OTHER SERUM ENZYMES (3) Rhabdomyolysis Code(s): M62.82 - RHABDOMYOLYSIS (4) ARF (acute renal failure) Code(s): N17.9 - ACUTE KIDNEY FAILURE, UNSPECIFIED (5) Alcoholic ketoacidosis Code(s): E87.2 - ACIDOSIS (6) ETOH abuse Code(s): F10.10 - ALCOHOL ABUSE, UNCOMPLICATED (7) HTN (hypertension) Code(s): I10 - ESSENTIAL (PRIMARY) HYPERTENSION (8) Acute gout due to renal impairment involving right ankle Code(s): M10.371 - GOUT DUE TO RENAL IMPAIRMENT, RIGHT ANKLE AND FOOT (9) Acute gout due to renal impairment involving right hand Code(s): M10.341 - GOUT DUE TO RENAL IMPAIRMENT, RIGHT HAND (10) Acute gout due to renal impairment involving left ankle Code(s): M10.372 - GOUT DUE TO RENAL IMPAIRMENT, LEFT ANKLE AND FOOT
--- NOTE | 2019-02-17 13:18 | PN ---
Progress Note, Physician History of Present Illness: Pt seen and examined at bedside. He is awake and alert. He denies abdominal pain. - Current Medication List Current Medications: Active Medications Acetaminophen (Tylenol -) 650 mg PO Q6H PRN PRN Reason: PAIN LEVEL 1 - 3 Last Admin: 02/16/19 21:21 Dose: 650 mg Sodium Chloride (Normal Saline -) 1,000 mls @ 150 mls/hr IV ASDIR [facility] Last Admin: 02/17/19 10:18 Dose: 150 mls/hr Labetalol HCl (Normodyne -) 100 mg PO TID [facility] Last Admin: 02/17/19 06:09 Dose: 100 mg Lorazepam (Ativan -) 1 mg PO TID [facility] Last Admin: 02/17/19 06:09 Dose: 1 mg Methylprednisolone Sodium Succinate (Solu-Medrol -) 60 mg IVPUSH Q8H-IV [facility] Pantoprazole Sodium (Protonix -) 40 mg PO BID [facility] Last Admin: 02/17/19 09:37 Dose: 40 mg Sucralfate (Carafate Oral Suspension -) 1 gm PO QID [facility] Last Admin: 02/17/19 09:36 Dose: 1 gm - Objective Vital Signs: Vital Signs Temperature 98 F 02/17/19 10:00 Pulse Rate 88 02/17/19 10:00 Respiratory Rate 18 02/17/19 10:00 Blood Pressure 128/86 02/17/19 10:00 O2 Sat by Pulse Oximetry (%) 98 02/16/19 21:00 Constitutional: Yes: Calm Eyes: Yes: Conjunctiva Clear HENT: Yes: Atraumatic Neck: Yes: Supple Cardiovascular: Yes: S1, S2 Respiratory: Yes: CTA Bilaterally Gastrointestinal: Yes: Soft Genitourinary: Yes: WNL Musculoskeletal: Yes: WNL Edema: No Neurological: Yes: Oriented Psychiatric: Yes: Oriented Labs: CBC, BMP 02/16/19 05:30 02/17/19 07:40 Problem List - Problems (1) ARF (acute renal failure) Code(s): N17.9 - ACUTE KIDNEY FAILURE, UNSPECIFIED (2) Rhabdomyolysis Code(s): M62.82 - RHABDOMYOLYSIS (3) ETOH abuse Code(s): F10.10 - ALCOHOL ABUSE, UNCOMPLICATED Assessment/Plan Current Medications Generic Name Dose Route Start Last Admin Trade Name Freq PRN Reason Stop Dose Admin Acetaminophen 650 mg 02/15/19 18:02 02/16/19 21:21 Tylenol - PO 650 mg Q6H PRN Administration PAIN LEVEL 1 - 3 Sodium Chloride 1,000 mls @ 150 mls/hr 02/17/19 09:41 02/17/19 10:18 Normal Saline - IV 150 mls/hr ASDIR [facility] Administration Labetalol HCl 100 mg 02/14/19 22:00 02/17/19 06:09 Normodyne - PO 100 mg TID [facility]ANG Administration Lorazepam 1 mg 02/14/19 22:00 02/17/19 06:09 Ativan - PO 1 mg TID [facility] Administration Methylprednisolone Sodium Succinate 60 mg 02/17/19 18:00 Solu-Medrol - IVPUSH Q8H-IV [facility] Pantoprazole Sodium 40 mg 02/14/19 22:00 02/17/19 09:37 Protonix - PO 40 mg BID [facility] Administration Sucralfate 1 gm 02/15/19 14:00 02/17/19 09:36 Carafate Oral Suspension - PO 1 gm QID [facility] Administration Impression 1. YIN 2. hyperkalemia 3. metabolic acidosis 4. HTN 5. etoh abuse - active 6. rhabdo 7. hyponatremia Plan - renal function is improved further - replace potassium - check mag - GI eval for elevated lipase pending - yin likely pre-renal Dr Aponte
--- NOTE | 2019-02-17 14:37 | CON.GI ---
Consult Consult Specialty:: GI: For Dr. Alba who resumes care 02/18 Referred by:: Dr. Sanjuanita Chamorro Reason for Consultation:: Abnormal liver chemistries - History of Present Illness Chief Complaint: Vomiting after binge drinking this History of Present Illness: 43M admitted for evaluation of persistent vomiting. He states that he has a history of binge drinking on weekends, had not drank since this past Nov and resumed his binge this past . After drinking large quantities of vodka, he began profusely vomiting. He also began experiencing pain in his foot remnisent to him of a gout flare. He denied associated abdominal pain. He was noted to be in renal failure and with component of rhabdomyolysis. He currently denies abdominal pain, nausea. There has been no rectal bleeding, melena, change in bowel habits including diarrhea. He has never had an upper endoscopy of colonoscopy. His father had colonoscopy diagnosed around age 73. There is no family history of liver disease. He has had both CT scan and MRCP of the abdomen today that have not been read as of yet. He had an abdominal US 02/14 revealing hepatomegaly, fatty infiltration, non-dilated biliary tract, normal flow in the portal vein, and overdistended gallbladder with sludge without pericholecystic fluid or thickening of the wall. He denies any focal GI complaints. Follow-up gallbladder US today revealed overdistended GB without evidence of acute cholecystitis. No stones were identified. 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 Place of : [facility] History of Recent Travel: No Home Medications - Allergies Allergies/Adverse Reactions: Allergies Allergy/AdvReac Type Severity Reaction Status Date / Time No Known Allergies Allergy Verified 02/14/19 08:18 - Home Medications Home Medications: Ambulatory Orders Clonidine HCl [Catapres] 0.5 mg PO DAILY 02/14/19 Family Disease History - Family Disease History Family Disease History: Other: Father (Alive: colon cancer at age 73), Mother ( Alive: ovarian cancer), Brother (2, healthy) Other Family History: No children Review of Systems - Review of Systems Constitutional: denies: Chills Cardiovascular: denies: Chest Pain Respiratory: denies: Cough Gastrointestinal: reports: Nausea. denies: Abdominal Pain, Diarrhea, Dysphagia , Melena, Rectal Bleeding, Vomiting Blood Physical Exam-GI Vital Signs: Vital Signs Temperature 98 F 02/17/19 10:00 Pulse Rate 88 02/17/19 10:00 Respiratory Rate 18 02/17/19 10:00 Blood Pressure 128/86 02/17/19 10:00 O2 Sat by Pulse Oximetry (%) 98 02/16/19 21:00 Constitutional: Yes: Calm Eyes: No: Sclera Icterus Cardiovascular: Yes: Regular Rate and Rhythm. No: Murmur Respiratory: Yes: CTA Bilaterally Gastrointestinal Inspection: No: Distention, Scars ...Auscultate: Yes: Normoactive Bowel Sounds ...Palpate: Yes: Hepatomegaly, Soft, Other (Negative moore's). No: Splenomegaly, Tenderness ...Percussion: No: Tympanitic Edema: Yes (trace LE edema) Neurological: Yes: Alert. No: Asterix[facility] Labs: CBC, BMP 02/16/19 05:30 02/17/19 07:40 Hepatic Panel Total Bilirubin 1.1 mg/dL (0.2-1) H 02/17/19 07:40 AST 17 U/L (15-37) 02/17/19 07:40 ALT 25 U/L (13-61) 02/17/19 07:40 Alkaline Phosphatase 34 U/L (45-117) L 02/17/19 07:40 Albumin 3.0 g/dl (3.4-5.0) L 02/17/19 07:40 Imaging - Results Cat Scan: Pending MRI: Pending Problem List - Problems (1) Alcohol intoxication Assessment/Plan: Acute alcohol intoxication with rhabdomyolysis and renal insufficiency, component of acute liver injury secondary to acute alcohol use Renal function improved, CPK trending down No focal GI complaints and liver chemistries improved No clinical evidence of acute cholecystitis and non dilated biliary tract noted on US Advised Linus need for complete alcohol abstinence Screening infectious hepatitis serologies ordered for the AM Tolerating PO, advance as tolerated Follow-up CT scan and MRI The extent of liver disease will be assessed in time with patient abstaining from alcohol Given family history of colon cancer, advised that he have outpatient follow-up to discuss elective colonoscopy when acute issues are resolved Dr. Alba resumes care tomorrow Code(s): F10.929 - ALCOHOL USE, UNSPECIFIED WITH INTOXICATION, UNSPECIFIED
[2019-02-18] MEDS: methylPREDNISolone NA SUCC 40 MG/1 ML VIAL IVPUSH SCH (01:06)
[2019-02-18 06:28] LABS: BASO % 0.1 % (0-2.0); HEMATOCRIT 33.5 % (35.4-49); HEMOGLOBIN 11.4 GM/dL (11.7-16.9); LYMPH % 7.2 % (8-40); MCH 29.4 pg (25.7-33.7); MEAN CELL VOLUME 86.5 fl (80-96); MEAN PLT VOLUME 8.8 fl (7.5-11.1); MONO % 2.9 % (3.8-10.2); NEUT % 89.8 % (42.8-82.8); PLATELET COUNT 143 K/MM3 (134-434); RBC 3.87 M/mm3 (4.00-5.60); RDW 14.3 % (11.9-15.9); WHITE BLOOD COUNT 7.5 K/mm3 (4.0-10.0)
[2019-02-18] MEDS: LABETALOL HCL 100 MG TABLET (FP) PO SCH ×3 (06:55→22:08)
[2019-02-18 07:58] LABS: ALBUMIN 3.2 g/dl (3.4-5.0); BILIRUBIN,DIRECT 0.2 mg/dL (0.0-0.2); BILIRUBIN,TOTAL 0.5 mg/dL (0.2-1); TOT PROT 6.5 g/dl (6.4-8.2)
[2019-02-18 08:02] LABS: ALBUMIN 3.1 g/dl (3.4-5.0); ALK PHOS 34 U/L (45-117); ANION GAP 7 MMOL/L (8-16); BILIRUBIN,TOTAL 0.6 mg/dL (0.2-1); BLOOD UREA NITROGEN 10 mg/dL (7-18); CALCIUM 9.1 mg/dL (8.5-10.1); CHLORIDE 106 mmol/L (98-107); CO2 25 mmol/L (21-32); CREATININE 0.7 mg/dL (0.55-1.3); GLUCOSE,RANDOM 127 mg/dL (74-106); LIPASE 4063 U/L (73-393); MAGNESIUM 1.8 mg/dL (1.8-2.4); POTASSIUM 3.9 mmol/L (3.5-5.1); SGOT/AST 15 U/L (15-37); SGPT/ALT 26 U/L (13-61); SODIUM 138 mmol/L (136-145); TOT PROT 6.7 g/dl (6.4-8.2)
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
[2019-02-18] MEDS: PANTOPRAZOLE 40 MG TABLET (FP) PO SCH ×2 (10:05→22:08)
[2019-02-18] MEDS: LORazepam 1 MG TABLET PO SCH ×2 (10:05→22:08)
[2019-02-18] MEDS: SUCRALFATE 1 GM/10 ML UNIT DOSE CUPS PO SCH ×4 (10:05→22:08)
[2019-02-18] MEDS: ACETAMINOPHEN 325 MG TABLET (FP) PO PRN (10:06)
--- NOTE | 2019-02-18 11:51 | PN ---
Progress Note, Physician History of Present Illness: Pt seen and examined at bedside. He is awake and alert. He denies shortness of breath. - Current Medication List Current Medications: Active Medications Acetaminophen (Tylenol -) 650 mg PO Q6H PRN PRN Reason: PAIN LEVEL 1 - 3 Last Admin: 02/18/19 10:06 Dose: 650 mg Sodium Chloride (Normal Saline -) 1,000 mls @ 150 mls/hr IV ASDIR [facility] Last Admin: 02/17/19 17:14 Dose: 150 mls/hr Labetalol HCl (Normodyne -) 100 mg PO TID [facility] Last Admin: 02/18/19 06:55 Dose: 100 mg Lorazepam (Ativan -) 1 mg PO BID [facility] Last Admin: 02/18/19 10:05 Dose: 1 mg Pantoprazole Sodium (Protonix -) 40 mg PO BID [facility] Last Admin: 02/18/19 10:05 Dose: 40 mg Sucralfate (Carafate Oral Suspension -) 1 gm PO QID [facility] Last Admin: 02/18/19 10:05 Dose: 1 gm - Objective Vital Signs: Vital Signs Temperature 98 F 02/18/19 10:00 Pulse Rate 86 02/18/19 10:00 Respiratory Rate 20 02/18/19 10:00 Blood Pressure 148/99 02/18/19 10:00 O2 Sat by Pulse Oximetry (%) 98 02/18/19 09:00 Constitutional: Yes: Calm Eyes: Yes: Conjunctiva Clear HENT: Yes: Atraumatic Neck: Yes: Supple Cardiovascular: Yes: S1, S2 Respiratory: Yes: CTA Bilaterally Gastrointestinal: Yes: Soft Genitourinary: Yes: WNL Musculoskeletal: Yes: WNL Edema: No Neurological: Yes: Oriented Psychiatric: Yes: Oriented Labs: CBC, BMP 02/18/19 05:30 02/18/19 05:30 Problem List - Problems (1) ARF (acute renal failure) Code(s): N17.9 - ACUTE KIDNEY FAILURE, UNSPECIFIED (2) Rhabdomyolysis Code(s): M62.82 - RHABDOMYOLYSIS (3) ETOH abuse Code(s): F10.10 - ALCOHOL ABUSE, UNCOMPLICATED Assessment/Plan Current Medications Generic Name Dose Route Start Last Admin Trade Name Freq PRN Reason Stop Dose Admin Acetaminophen 650 mg 02/15/19 18:02 02/18/19 10:06 Tylenol - PO 650 mg Q6H PRN Administration PAIN LEVEL 1 - 3 Sodium Chloride 1,000 mls @ 150 mls/hr 02/17/19 09:41 02/17/19 17:14 Normal Saline - IV 150 mls/hr ASDIR LANG Administration Labetalol HCl 100 mg 02/14/19 22:00 02/18/19 06:55 Normodyne - PO 100 mg TID LANG Administration Lorazepam 1 mg 02/17/19 22:00 02/18/19 10:05 Ativan - PO 1 mg BID LANG Administration Pantoprazole Sodium 40 mg 02/14/19 22:00 02/18/19 10:05 Protonix - PO 40 mg BID LANG Administration Sucralfate 1 gm 02/15/19 14:00 02/18/19 10:05 Carafate Oral Suspension - PO 1 gm QID LANG Administration Impression 1. YIN 2. hyperkalemia 3. metabolic acidosis 4. HTN 5. etoh abuse - active 6. rhabdo 7. hyponatremia Plan - decrease fluids - renal function is stable - pt tolerating diet - potassium improved - yin likely pre-renal Dr Aponte
[2019-02-18] MEDS: SODIUM CHLORIDE 1,000 ML IV SCH ×2 (11:55→17:16)
--- NOTE | 2019-02-18 17:47 | PN.GI ---
GI Progress Note Subjective: GI NOte: Dr Mathur's assistance is appreciated. Linus denies any nausea, vomiting or pain. The CT scan reveals no evidence of pancreatitis. The GB is distended but without ay pericholecystic inflammation. LFTs are normalized - Objective Vital Signs: Vital Signs Temperature 98.2 F 02/18/19 14:05 Pulse Rate 71 02/18/19 14:05 Respiratory Rate 20 02/18/19 14:05 Blood Pressure 151/108 H 02/18/19 14:05 O2 Sat by Pulse Oximetry (%) 98 02/18/19 09:00 Laboratory Tests 02/14/19 02/15/19 02/16/19 09:55 05:30 05:30 WBC 11.5 H Lipase 318 1995 H 02/17/19 02/18/19 02/18/19 07:40 05:30 05:30 WBC 7.5 Lipase 3396 H 4063 H Constitutional: Anxious ...Auscultate: Yes: Normoactive Bowel Sounds ...Palpate: Yes: Soft, Other (nontender) Labs: CBC, BMP 02/18/19 05:30 02/18/19 05:30 Assessment/Plan Impression: Resolving alcoholic hepatitis and gastritis Hyperlipasemia without clinical pancreatitis Plan: Strongly advised to abstain from any further alcohol Diet advanced. If no clinical symptoms arise Linus can be discharged and followup in our office Problem List - Problems (1) Elevated lipase Assessment/Plan: There is no clinical or imaging evidence of pancreatitis. Will advance diet. If tolerated can discharge tomorrow. Code(s): R74.8 - ABNORMAL LEVELS OF OTHER SERUM ENZYMES (2) Alcoholic hepatitis without ascites Assessment/Plan: Advised to abstain from all alcohol Code(s): K70.10 - ALCOHOLIC HEPATITIS WITHOUT ASCITES (3) Acute gout Code(s): M10.9 - GOUT, UNSPECIFIED (4) Alcoholic ketoacidosis Code(s): E87.2 - ACIDOSIS (5) Rhabdomyolysis Code(s): M62.82 - RHABDOMYOLYSIS (6) ETOH abuse Code(s): F10.10 - ALCOHOL ABUSE, UNCOMPLICATED
[2019-02-18] MEDS ORDERED: ACETAMINOPHEN 325 MG TABLET (FP) PO PRN (21:17)
[2019-02-19 04:09] LABS: HBSAG SCREEN Negative (Negative); HEP B CORE AB, TOT Negative (Negative)
[2019-02-19] MEDS: LABETALOL HCL 100 MG TABLET (FP) PO SCH (05:42)
[2019-02-19 07:01] LABS: BASO % 0.1 % (0-2.0); EOS % 0.5 % (0-4.5); HEMATOCRIT 33.3 % (35.4-49); HEMOGLOBIN 11.2 GM/dL (11.7-16.9); LYMPH % 21.9 % (8-40); MCH 29.6 pg (25.7-33.7); MCHC 33.7 g/dl (32.0-35.9); MEAN CELL VOLUME 87.9 fl (80-96); MEAN PLT VOLUME 8.5 fl (7.5-11.1); MONO % 11.6 % (3.8-10.2); NEUT % 65.9 % (42.8-82.8); PLATELET COUNT 184 K/MM3 (134-434); RBC 3.79 M/mm3 (4.00-5.60); RDW 14.1 % (11.9-15.9); WHITE BLOOD COUNT 6.7 K/mm3 (4.0-10.0)
[2019-02-19 07:48] LABS: ALK PHOS 33 U/L (45-117); ANION GAP 9 MMOL/L (8-16); BILIRUBIN,TOTAL 0.3 mg/dL (0.2-1); BLOOD UREA NITROGEN 11 mg/dL (7-18); CALCIUM 8.8 mg/dL (8.5-10.1); CHLORIDE 106 mmol/L (98-107); CO2 26 mmol/L (21-32); CREATININE 0.8 mg/dL (0.55-1.3); GLUCOSE,RANDOM 99 mg/dL (74-106); LIPASE 8106 U/L (73-393); POTASSIUM 3.3 mmol/L (3.5-5.1); SGOT/AST 17 U/L (15-37); SGPT/ALT 27 U/L (13-61); SODIUM 142 mmol/L (136-145); TOT PROT 6.1 g/dl (6.4-8.2)
[2019-02-19] MEDS ORDERED: KCL 10 MEQ IVPB 10 MEQ/100 ML INFUS.BAG IVPB SCH (09:45)
[2019-02-19] MEDS: LORazepam 1 MG TABLET PO SCH (11:43)
[2019-02-19] MEDS: PANTOPRAZOLE 40 MG TABLET (FP) PO SCH (11:43)
[2019-02-19] MEDS: SUCRALFATE 1 GM/10 ML UNIT DOSE CUPS PO SCH ×2 (11:43→15:10)
--- NOTE | 2019-02-19 11:50 | PN.GI ---
GI Progress Note Subjective: GI NOte: LIpase up to 8,000 but asymptomatic on solid diet. NO fever. I have advised Linus to make an appointment with Dr Clinton Callaway to arrange an EUS of the pancreas to exclude a neoplasm, pseudocyst and pancreatic stones. I gave the number. I spoke with Dr Chamorro and agree that Linus can be discharged. I again emphasized the need to abstain from alcohol and to join for support. - Objective Vital Signs: Vital Signs Temperature 98.6 F 02/19/19 09:44 Pulse Rate 64 02/19/19 06:10 Respiratory Rate 20 02/19/19 09:44 Blood Pressure 151/108 H 02/19/19 09:44 O2 Sat by Pulse Oximetry (%) 98 02/18/19 21:00 Laboratory Tests 02/14/19 02/15/19 02/19/19 11:30 05:30 06:00 WBC 6.7 Hgb 11.2 L Total Bilirubin AST ALT Alkaline Phosphatase C-Reactive Protein Total Amylase 79 50 Lipase 02/19/19 02/19/19 06:00 06:00 WBC Hgb Total Bilirubin 0.3 AST 17 ALT 27 Alkaline Phosphatase 33 L C-Reactive Protein 1.2 H Total Amylase 479 H Lipase 8106 H Constitutional: Calm ...Auscultate: Yes: Normoactive Bowel Sounds ...Palpate: Yes: Soft, Other (nontender) Labs: CBC, BMP 02/19/19 06:00 02/19/19 06:00 Assessment/Plan Impression: Resolving alcoholic hepatitis and gastritis Hyperlipasemia without clinical pancreatitis, perhaps a pseudocyst, pancreatic stone or neoplasm Plan: Strongly advised to abstain from any further alcohol Referral number given to arrange EUS with Dr Clinton Callaway Linus can be discharged and followup in our office. Discussed with Dr Chamorro Problem List - Problems (1) Elevated lipase Assessment/Plan: There is no clinical or imaging evidence of pancreatitis. Referred to Dr Callaway for EUS Code(s): R74.8 - ABNORMAL LEVELS OF OTHER SERUM ENZYMES (2) Alcoholic hepatitis without ascites Code(s): K70.10 - ALCOHOLIC HEPATITIS WITHOUT ASCITES (3) Acute gout Code(s): M10.9 - GOUT, UNSPECIFIED (4) Alcoholic ketoacidosis Code(s): E87.2 - ACIDOSIS (5) Rhabdomyolysis Code(s): M62.82 - RHABDOMYOLYSIS (6) ETOH abuse Code(s): F10.10 - ALCOHOL ABUSE, UNCOMPLICATED
[2019-02-19] MEDS ORDERED: cloNIDine HCL 0.1 MG TABLET PO ONE (13:13)
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
[2019-02-19] MEDS: SODIUM CHLORIDE 1,000 ML IV SCH (15:10)
[2019-02-19 15:16] VITALS: BP 152/105; PULSE 84; TEMP 98.7
== END 2019-02-19 16:15 | disposition left against medical advice (07) | DRG 770 ==
LOC: JER 08:13 → JERBED 14:11 → J4W 18:55 → J5S 02-18 20:55
PROVIDERS: ADMIT Family Medicine; ATTEND Family Medicine
PROC: HZ2ZZZZ Detoxification Services for Substance Abuse Treatment (ICD-10-PCS; principal; 2019-02-14)
DX: F10.230 Alcohol dependence with withdrawal, uncomplicated (principal); K70.10 Alcoholic hepatitis without ascites; N17.9 Acute kidney failure, unspecified; E87.2 Acidosis; M62.82 Rhabdomyolysis; I10 Essential (primary) hypertension; E87.5 Hyperkalemia; E87.1 Hypo-osmolality and hyponatremia; Y90.0 Blood alcohol level of less than 20 mg/100 ml; R74.8 Abnormal levels of other serum enzymes; K29.60 Other gastritis without bleeding; K21.9 Gastro-esophageal reflux disease without esophagitis; E87.6 Hypokalemia; M10.371 Gout due to renal impairment, right ankle and foot; M10.372 Gout due to renal impairment, left ankle and foot; M10.341 Gout due to renal impairment, right hand
CPT/HCPCS: 36415; 74176-TC; 76705-TC; 76775-TC; 80053; 80061; 80076; 80307; 81003; 82009; 82150; 82436; 82550; 82553; 82570; 82803; 82962; 83615; 83690; 83721; 83735; 84133; 84300; 84484; 84550; 85025; 86140; 86301; 86704; 86706; 86708; 86803; 87340; 90688; 90732; 93005; 93010; 99284-25; G0008; G0009; J0735; J7030